=== PATIENT | female | born 1990 | race Caucasian/White ===

== ENCOUNTER 2016-12-10 17:55 | Emergency (ER) | payer MEDICAID, OTHER ==
[~2016-12-10] VITALS: Ht 157.5 cm; Wt 67.5 kg
[~2016-12-10 17:55] MED LIST: DENIES MEDS; NO MEDS; PREN1TAB49
[2016-12-10 18:00] VITALS: Ht 157.5 cm; Wt 67.5 kg
[2016-12-10] MEDS ORDERED: IBUP-1542 PO (18:54)
[2016-12-10] MEDS ORDERED: HYDR-3011 PO (18:54)
[2016-12-10] MEDS ORDERED: CEPH-443 PO (18:54)
--- NOTE | 2016-12-10 19:08 | ERD ---
ER Documentation Chief Complaint Date/Time DATE: 12/10/16 TIME: 18:57 Chief Complaint Per Patient she was exposed to chemical at work and now has a rash HPI 26 yo female presents here in the ER for complaints of an itching in the upper extremities. Patient was working with some fiberglass, felt some fiberglass that stuck inside of her skin. Patient denies complaining of burning and itching , burning pain 4/10 scale, is worse upon touching the area, intermittent. Patient denies any fever or chills. Patient denies any visualized glass. ROS All systems reviewed and are negative except as per history of present illness. Medications Home Meds Active Scripts Ibuprofen* (Motrin*) 600 Mg Tab, 600 MG PO Q6H Y for PAIN AND OR ELEVATED TEMP, #30 TAB Prov:FANTASMA AUSTIN NP 12/10/16 Cephalexin* (Keflex*) 500 Mg Capsule, 500 MG PO QID for 10 Days, CAP Prov:FANTASMA AUSTIN NP 12/10/16 Hydroxyzine Hcl* (Hydroxyzine Hcl*) 25 Mg Tablet, 25 MG PO Q8H Y for ITCHING, # 30 TAB Prov:FANTASMA AUSTIN NP 12/10/16 Reported Medications Vits W-Ca,Fe,Fa(<1MG) () 1 Tab Tablet 05/04/11 [No Meds] No Conflict Check 08/06/10 [Denies Meds] No Conflict Check 07/17/10 Allergies Allergies: Coded Allergies: No Known Allergy (Verified , 05/04/11) PMhx/Soc Medical and Surgical Hx: pt denies Medical Hx, pt denies Surgical Hx History of Surgery: No Anesthesia Reaction: No Hx Neurological Disorder: No Hx Respiratory Disorders: No Hx Cardiac Disorders: No Hx Psychiatric Problems: No Hx Miscellaneous Medical Probl: No Hx Alcohol Use: No Hx Substance Use: No Hx Tobacco Use: No FmHx Family History: No coronary disease, No diabetes, No other Physical Exam Vitals Vital Signs Date Time Temp Pulse Resp B/P Pulse Ox O2 Delivery O2 Flow Rate FiO2 12/10/16 18:00 98.3 127 20 140/90 99 Physical Exam GENERAL: The patient is well developed and appropriate for usual state of health, in no apparent distress. CHEST: Clear to auscultation bilaterally. There are no rales, wheezes or rhonchi. HEART: Regular rate and rhythm. No murmurs, clicks, rubs or gallops. No S3 or S4. ABDOMEN: Soft, nontender and nondistended. Good bowel sounds. No rebound or guarding. No gross peritonitis. No gross organomegaly or masses. No Hendricks sign or McBurney point tenderness. BACK: No midline or flank tenderness. EXTREMITIES: Equal pulses bilaterally. There is no peripheral clubbing, cyanosis or edema. No focal swelling or erythema. Full range of motion. Grossly neurovascularly intact. NEURO: Alert and oriented. Cranial nerves 2-12 intact. Motor strength in all 4 extremities with 5/5 strength. Sensation grossly intact. Normal speech and gait. SKIN: Noted some maculopapular rash over upper extremities. There is no apparent rash or petechia. The skin is warm and dry. HEMATOLOGIC AND LYMPHATIC: There is no evidence of excessive bruising or lymphedema. No gross cervical, axillary, or inguinal lymphadenopathy. Procedures/MDM Medical decision making: Patient rash nonspecific at this time. Most likely consistent with some reaction to the fiberglass. Patient does not have any symptoms of any sepsis, no symptoms of any allergic reaction, does not have any symptoms of any coagulopathies. Patient does not have any symptoms of any contagious rash at this time. Patient was given for hydroxyzine, Ibuprofen, Keflex is advised to follow-up with primary care doctor in 2 days for reevaluation of symptoms. Patient is I surgeon to emergency department for any worsening symptoms. Departure Diagnosis: Primary Impression: Rash Condition: Stable Patient Instructions: Self-Care for Skin Rashes FANTASMA AUSTIN NP Dec 10, 2016 19:08
== END 2016-12-10 19:10 | disposition home or self-care (01) ==
LOC: FTE 17:55
DX: R21 Rash and other nonspecific skin eruption (principal)
CPT/HCPCS: 99284

== ENCOUNTER 2017-07-17 12:54 | Emergency (ER) | END 2017-07-17 16:31 | disposition home or self-care (01) ==